=== PATIENT | female | born 1995 | race Caucasian/White ===

== ENCOUNTER 2018-05-01 18:06 | Inpatient (IN) | payer MEDICAID ==
[2018-05-01 19:22] LABS: ADD MAN DIFF? NO
[2018-05-01 19:26] LABS: WHITE BLOOD COUNT 17.9 10^3/ul (4.8-10.8)
[2018-05-01 19:26] LABS: BASOPHIL # 0.1 10^3/ul (0.0-0.1); BASOPHILS % 0.3 % (0.0-2.0); EOSINOPHILS % 0.1 % (0.0-7.0); HEMATOCRIT 32.4 % (37.0-47.0); HEMOGLOBIN 11.3 g/dl (12.0-16.0); LYMPHOCYTES # 1.1 10^3/ul (0.8-2.9); LYMPHOCYTES % 5.9 % (15.0-51.0); MEAN CORPUSCULAR HGB CONC 34.9 g/dl (32.0-37.0); MEAN CORPUSCULAR VOLUME 91.8 fl (82.0-101.0); MEAN PLATELET VOLUME 9.8 fl (7.4-10.4); MONOCYTE # 0.9 10^3/ul (0.3-0.9); MONOCYTES % 5.1 % (0.0-11.0); NEUTROPHIL # 15.6 10^3/ul (1.6-7.5); NEUTROPHILS % 87.3 % (39.0-77.0); PLATELET COUNT 237 10^3/UL (140-415); RED BLOOD COUNT 3.53 10^6/ul (4.20-5.40); RED CELL DISTRIBUTION WIDTH 12.1 % (11.5-14.5)
[2018-05-01 19:31] LABS: ADD UMIC NO; UR ASCORBIC ACID NEGATIVE (NEGATIVE); UR BILIRUBIN (Dip) NEGATIVE (NEGATIVE); UR BLOOD (Dip) NEGATIVE (NEGATIVE); UR CLARITY CLEAR (CLEAR); UR COLOR YELLOW (YELLOW); UR GLUCOSE (Dip) NEGATIVE (NEGATIVE); UR KETONES (Dip) NEGATIVE (NEGATIVE); UR LEUKOCYTE ESTERASE (Dip) NEGATIVE Leu/ul (NEGATIVE); UR NITRITE (Dip) NEGATIVE (NEGATIVE); UR SPECIFIC GRAVITY (Dip) 1.015 (1.003-1.030); UR TOTAL PROTEIN (Dip) NEGATIVE (NEGATIVE); UR UROBILINOGEN (Dip) NEGATIVE (NEGATIVE)
[2018-05-01] MEDS: ACETAMINOPHEN 325 MG TAB PO (19:33)
[2018-05-01] MEDS: SOD CHLORIDE 0.9% 1,000 ML IV ×2 (19:33→20:30)
[2018-05-01] MEDS: ONDANSETRON 4 MG INJ IV (19:34)
[2018-05-01 19:42] LABS: ALANINE AMINOTRANSFERASE 88 IU/L (13-69); ALBUMIN 3.5 g/dl (3.3-4.9); ALBUMIN/GLOBULIN RATIO 1.12; ALKALINE PHOSPHATASE 75 IU/L (42-121); ANION GAP 11 (5-13); ASPARTATE AMINO TRANSFERASE 60 IU/L (15-46); BILIRUBIN,INDIRECT 0.2 mg/dl (0-1.1); BILIRUBIN,TOTAL 0.2 mg/dl (0.2-1.3); BLOOD UREA NITROGEN 6 mg/dl (7-20); CALCIUM 9.2 mg/dl (8.4-10.2); CARBON DIOXIDE 17 mmol/L (21-31); CHLORIDE 109 mmol/L (97-110); CREATININE 0.53 mg/dl (0.44-1.00); Estimated GFR > 60 mL/min (>60); GLUCOSE 98 mg/dl (70-220); LIPASE 37 U/L (23-300); POTASSIUM 3.4 mmol/L (3.5-5.1); SODIUM 137 mmol/L (135-144); TOTAL PROTEIN 6.6 g/dl (6.1-8.1)
[2018-05-01] MEDS: NITROFURANTOIN (SR) 100 MG CAP PO (20:30)
[2018-05-01 21:38] LABS: AADO2 Arterial 6.4 mmHg (7.0-24.0); Allen Test ACCEPTAB; Arterial Base Excess -4.1 mmol/L (-3.0-3); Arterial Blood Gas Oxygen Sat 98.3 mmHG (95.0-98.0); Arterial COHb 0.3 % (0.0-3.0); Arterial Fraction of Oxyhgb 97.6 % (93.0-99.0); Arterial HCO3 16.3 mmol/L (22.0-26.0); Arterial MetHb 0.4 % (0.0-1.5); Arterial pCO2 19.8 mmhg (35-45); MODE ROOM AIR; Site Right Radial
[2018-05-01] MEDS: PIPER-TAZO 3.375 GM IV (PMX) 100 ML IVPB (22:16)
[2018-05-01 23:11] LABS: LACTIC ACID 1.1 mmol/L (0.5-2.0)
[2018-05-02] MEDS ORDERED: BISACODYL (EC) 5 MG TAB PO
[2018-05-02] MEDS: NACL 0.9% 3 ML SYG IV (00:45)
[2018-05-02] MEDS: POTASSIUM CHLORIDE (SR) 20 MEQ TAB PO (00:47)
[2018-05-02] MEDS: DOCUSATE SODIUM 100 MG CAP PO ×2 (00:47→20:40)
[2018-05-02] MEDS: PRENATAL VITAMIN PO ×2 (02:00→08:14)
[2018-05-02] MEDS: ACETAMINOPHEN 325 MG TAB PO ×2 (04:43→20:44)
[2018-05-02 05:38] LABS: ADD MAN DIFF? NO
[2018-05-02 05:51] LABS: BASOPHIL # 0.1 10^3/ul (0.0-0.1); BASOPHILS % 0.3 % (0.0-2.0); EOSINOPHILS # 0.1 10^3/ul (0.0-0.5); EOSINOPHILS % 0.4 % (0.0-7.0); HEMATOCRIT 32.3 % (37.0-47.0); LYMPHOCYTES # 1.2 10^3/ul (0.8-2.9); LYMPHOCYTES % 7.6 % (15.0-51.0); MEAN CORPUSCULAR HGB CONC 34.1 g/dl (32.0-37.0); MEAN CORPUSCULAR VOLUME 93.9 fl (82.0-101.0); MEAN PLATELET VOLUME 9.9 fl (7.4-10.4); MONOCYTES % 6.3 % (0.0-11.0); NEUTROPHIL # 13.3 10^3/ul (1.6-7.5); NEUTROPHILS % 83.8 % (39.0-77.0); PLATELET COUNT 224 10^3/UL (140-415); RED BLOOD COUNT 3.44 10^6/ul (4.20-5.40); RED CELL DISTRIBUTION WIDTH 12.1 % (11.5-14.5)
[2018-05-02 05:51] LABS: WHITE BLOOD COUNT 15.8 10^3/ul (4.8-10.8)
[2018-05-02 06:04] LABS: HEMOGLOBIN A1C 4.6 % (0-5.9)
[2018-05-02 06:27] LABS: ALANINE AMINOTRANSFERASE 85 IU/L (13-69); ALBUMIN/GLOBULIN RATIO 0.93; ALKALINE PHOSPHATASE 72 IU/L (42-121); ANION GAP 9 (5-13); ASPARTATE AMINO TRANSFERASE 48 IU/L (15-46); BILIRUBIN,INDIRECT 0.1 mg/dl (0-1.1); BILIRUBIN,TOTAL 0.1 mg/dl (0.2-1.3); BLOOD UREA NITROGEN 3 mg/dl (7-20); CALCIUM 8.5 mg/dl (8.4-10.2); CARBON DIOXIDE 19 mmol/L (21-31); CHLORIDE 111 mmol/L (97-110); CHOL/HDL RATIO 2.6 RATIO; CHOLESTEROL 160 mg/dl (100-200); CREATININE 0.46 mg/dl (0.44-1.00); Estimated GFR > 60 mL/min (>60); GLUCOSE 90 mg/dl (70-220); HDL CHOLESTEROL 61 mg/dl (33-83); LDL CHOLESTEROL,CALCULATED 84 mg/dl; MAGNESIUM 1.8 mg/dl (1.7-2.5); POTASSIUM 3.8 mmol/L (3.5-5.1); SODIUM 139 mmol/L (135-144); TOTAL PROTEIN 6.2 g/dl (6.1-8.1); TRIGLYCERIDES 76 mg/dl (0-149)
[2018-05-02 06:41] LABS: THYROID STIMULATING HORMONE 0.677 MIU/L (0.465-4.680)
[2018-05-02] MEDS: CEFTRIAXONE 1 GM INJ IVPB (16:00)
[2018-05-02] MEDS: DEXTROSE 5%-0.45% NACL 1,000 ML IV (16:10)
[2018-05-02] MEDS: PIPER-TAZO 3.375 GM IV (PMX) 100 ML IVPB ×2 (16:45→23:03)
[2018-05-03] MEDS: DEXTROSE 5%-0.45% NACL 1,000 ML IV ×2 (04:50→06:07)
[2018-05-03] MEDS: PIPER-TAZO 3.375 GM IV (PMX) 100 ML IVPB ×2 (06:04→13:04)
[2018-05-03 06:06] LABS: ADD MAN DIFF? NO
[2018-05-03 06:08] LABS: WHITE BLOOD COUNT 9.5 10^3/ul (4.8-10.8)
[2018-05-03 06:08] LABS: BASOPHIL # 0.1 10^3/ul (0.0-0.1); BASOPHILS % 0.6 % (0.0-2.0); EOSINOPHILS # 0.2 10^3/ul (0.0-0.5); EOSINOPHILS % 2.2 % (0.0-7.0); HEMATOCRIT 31.3 % (37.0-47.0); HEMOGLOBIN 10.5 g/dl (12.0-16.0); LYMPHOCYTES # 1.9 10^3/ul (0.8-2.9); LYMPHOCYTES % 19.5 % (15.0-51.0); MEAN CORPUSCULAR HEMOGLOBIN 31.9 pg (29.0-33.0); MEAN CORPUSCULAR HGB CONC 33.5 g/dl (32.0-37.0); MEAN CORPUSCULAR VOLUME 95.1 fl (82.0-101.0); MEAN PLATELET VOLUME 9.9 fl (7.4-10.4); MONOCYTE # 0.7 10^3/ul (0.3-0.9); MONOCYTES % 7.4 % (0.0-11.0); NEUTROPHIL # 6.4 10^3/ul (1.6-7.5); NEUTROPHILS % 66.8 % (39.0-77.0); PLATELET COUNT 232 10^3/UL (140-415); RED BLOOD COUNT 3.29 10^6/ul (4.20-5.40); RED CELL DISTRIBUTION WIDTH 12.3 % (11.5-14.5)
[2018-05-03 06:27] LABS: ANION GAP 5 (5-13); BLOOD UREA NITROGEN 5 mg/dl (7-20); CALCIUM 8.5 mg/dl (8.4-10.2); CARBON DIOXIDE 23 mmol/L (21-31); CHLORIDE 111 mmol/L (97-110); Estimated GFR > 60 mL/min (>60); GLUCOSE 86 mg/dl (70-220); POTASSIUM 3.6 mmol/L (3.5-5.1); SODIUM 139 mmol/L (135-144)
[2018-05-03] MEDS: PRENATAL VITAMIN PO (08:08)
[2018-05-03] MEDS: ONDANSETRON 4 MG TAB PO (09:55)
== END 2018-05-03 15:20 | disposition home or self-care (01) | DRG 831 ==
LOC: 2NE 23:17 → E/R 18:06
PROVIDERS: Family Medicine
DX: O98.812 Other maternal infectious and parasitic diseases complicating pregnancy, second trimester (principal); A41.9 Sepsis, unspecified organism; R65.20 Severe sepsis without septic shock; E87.2 Acidosis; B96.89 Other specified bacterial agents as the cause of diseases classified elsewhere; Z3A.17 17 weeks gestation of pregnancy; R74.0 Nonspecific elevation of levels of transaminase and lactic acid dehydrogenase [LDH]; J06.9 Acute upper respiratory infection, unspecified; K82.4 Cholesterolosis of gallbladder; O99.612 Diseases of the digestive system complicating pregnancy, second trimester
CPT/HCPCS: 36415; 36600; 71045; 76705; 76805; 80048; 80053; 80061; 81003; 82803; 83036; 83605; 83690; 83735; 84443; 84702; 85025; 87040; 87086; 87400; 87880; 96361; 96374; 99291-25

== ENCOUNTER 2018-06-21 08:43 | Outpatient (CLI) | payer BC ==
[2018-06-21 09:33] LABS: ADD MAN DIFF? NO
[2018-06-21 09:43] LABS: BASOPHILS % 0.3 % (0.0-2.0); EOSINOPHILS # 0.1 10^3/ul (0.0-0.5); HEMATOCRIT 31.5 % (37.0-47.0); HEMOGLOBIN 10.6 g/dl (12.0-16.0); LYMPHOCYTES # 1.8 10^3/ul (0.8-2.9); LYMPHOCYTES % 16.8 % (15.0-51.0); MEAN CORPUSCULAR HEMOGLOBIN 32.1 pg (29.0-33.0); MEAN CORPUSCULAR HGB CONC 33.7 g/dl (32.0-37.0); MEAN CORPUSCULAR VOLUME 95.5 fl (82.0-101.0); MEAN PLATELET VOLUME 9.4 fl (7.4-10.4); MONOCYTE # 0.5 10^3/ul (0.3-0.9); MONOCYTES % 5.1 % (0.0-11.0); NEUTROPHIL # 7.6 10^3/ul (1.6-7.5); NEUTROPHILS % 72.9 % (39.0-77.0); PLATELET COUNT 263 10^3/UL (140-415); RED CELL DISTRIBUTION WIDTH 12.5 % (11.5-14.5)
[2018-06-21 09:43] LABS: WHITE BLOOD COUNT 10.4 10^3/ul (4.8-10.8)
[2018-06-21 09:54] LABS: ADD UMIC YES; UR ASCORBIC ACID 40 mg/dL (NEGATIVE); UR BACTERIA FEW /HPF (NONE SEEN); UR BILIRUBIN (Dip) NEGATIVE (NEGATIVE); UR BLOOD (Dip) NEGATIVE (NEGATIVE); UR CLARITY SLIGHTLY CLOUDY (CLEAR); UR COLOR YELLOW (YELLOW); UR GLUCOSE (Dip) NEGATIVE (NEGATIVE); UR KETONES (Dip) NEGATIVE (NEGATIVE); UR LEUKOCYTE ESTERASE (Dip) TRACE Leu/ul (NEGATIVE); UR MUCUS FEW /HPF (NONE SEEN); UR NITRITE (Dip) NEGATIVE (NEGATIVE); UR RBC 1 /HPF (0-5); UR SQUAMOUS EPITHELIAL CELL FEW /HPF (FEW); UR TOTAL PROTEIN (Dip) NEGATIVE (NEGATIVE); UR UROBILINOGEN (Dip) 1+ mg/dL (NEGATIVE); UR WBC 1 /HPF (0-5)
== END 2018-06-21 10:35 | disposition home or self-care (01) ==
LOC: OBT 08:43 → L-D 08:43 → OBT 10:35
DX: O46.92 Antepartum hemorrhage, unspecified, second trimester (principal); Z3A.24 24 weeks gestation of pregnancy
CPT/HCPCS: 76815; 76817; 81001; 85025; 86850; 86900; 86901; 87086

== ENCOUNTER 2018-08-06 19:10 | Outpatient (CLI) | payer BC, MEDICAID ==
[2018-08-06 20:57] LABS: ALANINE AMINOTRANSFERASE 23 IU/L (13-69); ALBUMIN 3.1 g/dl (3.3-4.9); ALBUMIN/GLOBULIN RATIO 1.03; ALKALINE PHOSPHATASE 127 IU/L (42-121); ANION GAP 5 (5-13); ASPARTATE AMINO TRANSFERASE 23 IU/L (15-46); BILIRUBIN,INDIRECT 0.4 mg/dl (0-1.1); BILIRUBIN,TOTAL 0.4 mg/dl (0.2-1.3); BLOOD UREA NITROGEN 7 mg/dl (7-20); CALCIUM 8.6 mg/dl (8.4-10.2); CARBON DIOXIDE 25 mmol/L (21-31); CHLORIDE 105 mmol/L (97-110); CREATININE 0.48 mg/dl (0.44-1.00); Estimated GFR > 60 mL/min (>60); GLUCOSE 91 mg/dl (70-220); POTASSIUM 3.7 mmol/L (3.5-5.1); SODIUM 135 mmol/L (135-144); TOTAL PROTEIN 6.1 g/dl (6.1-8.1)
[2018-08-11 14:57] LABS: CHENODEOXYCHOLIC ACID 2.5 umol/L (< OR = 3.1); CHOLIC ACID 3.6 umol/L (< OR = 1.8); DEOXYCHOLIC ACID 2.7 umol/L (< OR = 2.4); TOTAL BILE ACIDS 8.7 umol/L (< OR = 6.8)
== END 2018-08-06 22:09 | disposition home or self-care (01) ==
LOC: OBT 19:10 → L-D 19:10 → OBT 22:09
DX: O36.8130 Decreased fetal movements, third trimester, not applicable or unspecified (principal); Z3A.30 30 weeks gestation of pregnancy
CPT/HCPCS: 76818; 80053; 83789

== ENCOUNTER 2018-08-08 19:43 | Outpatient (CLI) | payer BC, MEDICAID ==
[2018-08-08] MEDS: LACTATED RINGER'S 1,000 ML IV (21:20)
[2018-08-08] MEDS: NIFEdipine 10 MG CAP PO (23:06)
[2018-08-08] MEDS: TERBUTALINE 1 MG/ML INJ SC (23:13)
[2018-08-09] MEDS ORDERED: ONDANSETRON 4 MG INJ IV (01:00)
[2018-08-09 01:41] LABS: ADD MAN DIFF? NO
[2018-08-09 01:45] LABS: BASOPHIL # 0.1 10^3/ul (0.0-0.1); BASOPHILS % 0.6 % (0.0-2.0); EOSINOPHILS % 0.3 % (0.0-7.0); HEMATOCRIT 34.8 % (37.0-47.0); HEMOGLOBIN 11.8 g/dl (12.0-16.0); LYMPHOCYTES # 1.1 10^3/ul (0.8-2.9); LYMPHOCYTES % 7.9 % (15.0-51.0); MEAN CORPUSCULAR HEMOGLOBIN 31.9 pg (29.0-33.0); MEAN CORPUSCULAR HGB CONC 33.9 g/dl (32.0-37.0); MEAN CORPUSCULAR VOLUME 94.1 fl (82.0-101.0); MEAN PLATELET VOLUME 9.8 fl (7.4-10.4); MONOCYTE # 0.4 10^3/ul (0.3-0.9); MONOCYTES % 3.2 % (0.0-11.0); NEUTROPHIL # 11.2 10^3/ul (1.6-7.5); NEUTROPHILS % 83.8 % (39.0-77.0); PLATELET COUNT 260 10^3/UL (140-415); RED CELL DISTRIBUTION WIDTH 12.1 % (11.5-14.5)
[2018-08-09 01:45] LABS: WHITE BLOOD COUNT 13.3 10^3/ul (4.8-10.8)
[2018-08-09 01:47] LABS: ADD UMIC NO; UR ASCORBIC ACID NEGATIVE (NEGATIVE); UR BACTERIA FEW /HPF (NONE SEEN); UR BILIRUBIN (Dip) NEGATIVE (NEGATIVE); UR BLOOD (Dip) NEGATIVE (NEGATIVE); UR CLARITY SLIGHTLY CLOUDY (CLEAR); UR COLOR YELLOW (YELLOW); UR GLUCOSE (Dip) NEGATIVE (NEGATIVE); UR KETONES (Dip) 2+ mg/dL (NEGATIVE); UR LEUKOCYTE ESTERASE (Dip) NEGATIVE Leu/ul (NEGATIVE); UR NITRITE (Dip) NEGATIVE (NEGATIVE); UR RBC 0 /HPF (0-5); UR SPECIFIC GRAVITY (Dip) 1.017 (1.003-1.030); UR SQUAMOUS EPITHELIAL CELL FEW /HPF (FEW); UR TOTAL PROTEIN (Dip) NEGATIVE (NEGATIVE); UR UROBILINOGEN (Dip) NEGATIVE (NEGATIVE); UR WBC 1 /HPF (0-5)
== END 2018-08-09 02:15 | disposition home or self-care (01) ==
LOC: OBT 19:43 → L-D 19:43
DX: O99.613 Diseases of the digestive system complicating pregnancy, third trimester (principal); K52.9 Noninfective gastroenteritis and colitis, unspecified; O47.03 False labor before 37 completed weeks of gestation, third trimester; Z3A.31 31 weeks gestation of pregnancy
CPT/HCPCS: 36415; 76815; 76817; 76818; 81001; 81003; 85025; 87086; 96360; 96361

== ENCOUNTER 2018-08-09 13:57 | Outpatient (CLI) | payer BC, MEDICAID ==
[2018-08-09 15:44] LABS: ADD UMIC YES; UR ASCORBIC ACID NEGATIVE (NEGATIVE); UR BACTERIA FEW /HPF (NONE SEEN); UR BILIRUBIN (Dip) NEGATIVE (NEGATIVE); UR BLOOD (Dip) NEGATIVE (NEGATIVE); UR CLARITY CLEAR (CLEAR); UR COLOR STRAW (YELLOW); UR GLUCOSE (Dip) NEGATIVE (NEGATIVE); UR KETONES (Dip) NEGATIVE (NEGATIVE); UR LEUKOCYTE ESTERASE (Dip) TRACE Leu/ul (NEGATIVE); UR NITRITE (Dip) NEGATIVE (NEGATIVE); UR RBC 0 /HPF (0-5); UR SPECIFIC GRAVITY (Dip) 1.003 (1.003-1.030); UR SQUAMOUS EPITHELIAL CELL FEW /HPF (FEW); UR TOTAL PROTEIN (Dip) NEGATIVE (NEGATIVE); UR UROBILINOGEN (Dip) 1+ mg/dL (NEGATIVE); UR WBC 3 /HPF (0-5)
[2018-08-09 16:50] LABS: TROPONIN-I < 0.012 ng/ml (0.000-0.120)
== END 2018-08-09 16:45 | disposition home or self-care (01) ==
LOC: OBT 13:57 → L-D 13:57 → OBT 16:45
DX: O60.03 Preterm labor without delivery, third trimester (principal); Z3A.30 30 weeks gestation of pregnancy
CPT/HCPCS: 76817; 76818; 81001; 84484; 87086; 93005

== ENCOUNTER 2018-08-09 16:57 | Emergency (ER) | payer BC, MEDICAID | END 2018-08-09 19:15 | disposition home or self-care (01) | LOC: FTE 16:57 | DX: O26.893 Other specified pregnancy related conditions, third trimester (principal); R07.9 Chest pain, unspecified; Z3A.31 31 weeks gestation of pregnancy | CPT/HCPCS: 99282 ==

== ENCOUNTER 2018-08-23 16:10 | Outpatient (CLI) | payer BC, MEDICAID | END 2018-08-23 17:57 | disposition home or self-care (01) | LOC: OBT 16:10 → L-D 16:12 → OBT 17:57 | DX: O40.3XX0 Polyhydramnios, third trimester, not applicable or unspecified (principal); Z3A.33 33 weeks gestation of pregnancy | CPT/HCPCS: 76818 ==

== ENCOUNTER 2018-08-25 11:46 | Outpatient (CLI) | payer BC, MEDICAID ==
[2018-08-25 13:30] LABS: ADD UMIC NO; UR ASCORBIC ACID NEGATIVE (NEGATIVE); UR BILIRUBIN (Dip) NEGATIVE (NEGATIVE); UR BLOOD (Dip) NEGATIVE (NEGATIVE); UR CLARITY CLEAR (CLEAR); UR COLOR YELLOW (YELLOW); UR GLUCOSE (Dip) NEGATIVE (NEGATIVE); UR KETONES (Dip) NEGATIVE (NEGATIVE); UR LEUKOCYTE ESTERASE (Dip) NEGATIVE Leu/ul (NEGATIVE); UR NITRITE (Dip) NEGATIVE (NEGATIVE); UR SPECIFIC GRAVITY (Dip) 1.013 (1.003-1.030); UR TOTAL PROTEIN (Dip) NEGATIVE (NEGATIVE); UR UROBILINOGEN (Dip) NEGATIVE (NEGATIVE)
== END 2018-08-25 13:45 | disposition home or self-care (01) ==
LOC: OBT 11:46 → L-D 11:47 → OBT 13:45
DX: O47.03 False labor before 37 completed weeks of gestation, third trimester (principal); Z3A.33 33 weeks gestation of pregnancy
CPT/HCPCS: 81003

== ENCOUNTER 2018-09-05 19:58 | Emergency (ER) | payer BC, MEDICAID ==
[2018-09-05] MEDS: DIPHENHYDRAMINE 25 MG CAP PO (22:08)
== END 2018-09-05 22:24 | disposition home or self-care (01) ==
LOC: FTE 19:58
DX: O9A.213 Injury, poisoning and certain other consequences of external causes complicating pregnancy, third trimester (principal); S80.862A Insect bite (nonvenomous), left lower leg, initial encounter; S80.861A Insect bite (nonvenomous), right lower leg, initial encounter; W57.XXXA Bitten or stung by nonvenomous insect and other nonvenomous arthropods, initial encounter; Y92.9 Unspecified place or not applicable; Z3A.35 35 weeks gestation of pregnancy
CPT/HCPCS: 99282

== ENCOUNTER 2018-09-06 09:27 | Inpatient (IN) | payer BC, MEDICAID ==
[2018-09-06 11:14] LABS: RUPTURE FETAL MEMBRANES NEGATIVE (NEGATIVE)
[2018-09-06] MEDS ORDERED: ACETAMINOPHEN 500 MG TAB PO (15:00)
[2018-09-06 15:27] LABS: ADD MAN DIFF? NO
[2018-09-06 15:31] LABS: BASOPHIL # 0.1 10^3/ul (0.0-0.1); BASOPHILS % 0.6 % (0.0-2.0); EOSINOPHILS # 0.3 10^3/ul (0.0-0.5); EOSINOPHILS % 2.8 % (0.0-7.0); HEMATOCRIT 34.6 % (37.0-47.0); HEMOGLOBIN 11.7 g/dl (12.0-16.0); LYMPHOCYTES % 19.5 % (15.0-51.0); MEAN CORPUSCULAR HEMOGLOBIN 31.5 pg (29.0-33.0); MEAN CORPUSCULAR HGB CONC 33.8 g/dl (32.0-37.0); MEAN PLATELET VOLUME 10.3 fl (7.4-10.4); MONOCYTE # 0.5 10^3/ul (0.3-0.9); MONOCYTES % 5.4 % (0.0-11.0); NEUTROPHIL # 6.8 10^3/ul (1.6-7.5); NEUTROPHILS % 67.5 % (39.0-77.0); PLATELET COUNT 245 10^3/UL (140-415); RED BLOOD COUNT 3.72 10^6/ul (4.20-5.40); RED CELL DISTRIBUTION WIDTH 12.5 % (11.5-14.5)
[2018-09-06] MEDS: LACTATED RINGER'S 1,000 ML IV ×2 (15:37→22:21)
[2018-09-06] MEDS: GENTAMICIN 80 MG/NS (PMX) 50 ML IVPB ×2 (15:37→21:27)
[2018-09-06 15:50] LABS: INR 0.85; PROTIME 11.7 Sec (11.9-14.9); PT RATIO 0.9
[2018-09-06 15:51] LABS: PARTIAL THROMBOPLASTIN TIME 28.6 Sec (23.0-35.0)
[2018-09-06 15:53] LABS: ALANINE AMINOTRANSFERASE 20 IU/L (13-69); ALBUMIN 3.1 g/dl (3.3-4.9); ALBUMIN/GLOBULIN RATIO 0.93; ALKALINE PHOSPHATASE 201 IU/L (42-121); ANION GAP 8 (5-13); ASPARTATE AMINO TRANSFERASE 19 IU/L (15-46); BILIRUBIN,INDIRECT 0.3 mg/dl (0-1.1); BILIRUBIN,TOTAL 0.3 mg/dl (0.2-1.3); BLOOD UREA NITROGEN 6 mg/dl (7-20); CALCIUM 8.7 mg/dl (8.4-10.2); CARBON DIOXIDE 21 mmol/L (21-31); CHLORIDE 108 mmol/L (97-110); CREATININE 0.43 mg/dl (0.44-1.00); Estimated GFR > 60 mL/min (>60); GLUCOSE 81 mg/dl (70-220); POTASSIUM 3.5 mmol/L (3.5-5.1); SODIUM 137 mmol/L (135-144); TOTAL PROTEIN 6.4 g/dl (6.1-8.1)
[2018-09-06 16:04] LABS: ADD UMIC NO; UR ASCORBIC ACID NEGATIVE (NEGATIVE); UR BILIRUBIN (Dip) NEGATIVE (NEGATIVE); UR BLOOD (Dip) NEGATIVE (NEGATIVE); UR CLARITY CLEAR (CLEAR); UR COLOR STRAW (YELLOW); UR GLUCOSE (Dip) NEGATIVE (NEGATIVE); UR KETONES (Dip) NEGATIVE (NEGATIVE); UR LEUKOCYTE ESTERASE (Dip) NEGATIVE Leu/ul (NEGATIVE); UR NITRITE (Dip) NEGATIVE (NEGATIVE); UR SPECIFIC GRAVITY (Dip) 1.003 (1.003-1.030); UR TOTAL PROTEIN (Dip) NEGATIVE (NEGATIVE); UR UROBILINOGEN (Dip) NEGATIVE (NEGATIVE)
[2018-09-06 16:52] LABS: HEPATITIS B SURFACE ANTIGEN NEGATIVE (NEGATIVE)
[2018-09-06] MEDS: URSODIOL 300 MG CAP PO ×2 (17:00→22:07)
[2018-09-06] MEDS: BETAMET NA PHOS/AC(6 MG/ML) 2 ML INJ SYG IM (19:00)
[2018-09-06] MEDS ORDERED: ACETAMINOPHEN 325 MG TAB PO (21:30)
[2018-09-07] MEDS: GENTAMICIN 80 MG/NS (PMX) 50 ML IVPB ×3 (05:20→21:37)
[2018-09-07] MEDS: LACTATED RINGER'S 1,000 ML IV ×3 (06:43→22:41)
[2018-09-07] MEDS: FERROUS SULFATE (EC) 325 MG TAB PO (09:10)
[2018-09-07] MEDS: PRENATAL VITAMIN PO (09:10)
[2018-09-07] MEDS: URSODIOL 300 MG CAP PO ×3 (09:10→21:37)
[2018-09-07] MEDS: BETAMET NA PHOS/AC(6 MG/ML) 2 ML INJ SYG IM (19:04)
[2018-09-08] MEDS: LACTATED RINGER'S 1,000 ML IV ×4 (05:15→23:54)
[2018-09-08] MEDS: GENTAMICIN 80 MG/NS (PMX) 50 ML IVPB ×3 (05:43→21:13)
[2018-09-08] MEDS: PRENATAL VITAMIN PO (09:12)
[2018-09-08] MEDS: URSODIOL 300 MG CAP PO ×3 (09:12→21:13)
[2018-09-08] MEDS: FERROUS SULFATE (EC) 325 MG TAB PO (09:13)
[2018-09-08] MEDS: AMPICILLIN 2 GM/NS (PMX) 100 ML IVPB (09:57)
[2018-09-08] MEDS ORDERED: FENTAnyl 2MCG/ML-ROPIV 0.2% 100 ML (16:46)
[2018-09-08] MEDS ORDERED: FENTAnyl 2MCG/ML-ROPIV 0.2% 100 ML BAG EPI (17:00)
[2018-09-08] MEDS ORDERED: NALOXONE (0.4 MG/ML) INJ IV (17:00)
[2018-09-08] MEDS ORDERED: ONDANSETRON 4 MG INJ IV (17:00)
[2018-09-08] MEDS ORDERED: DIPHENHYDRAMINE 50 MG INJ IV (17:00)
[2018-09-08] MEDS: AL HYDROX/MG HYDROX/SIMETH 30 ML CUP PO (20:29)
[2018-09-08] MEDS ORDERED: FAMOTIDINE 20 MG INJ IV (21:30)
[2018-09-09] MEDS: GENTAMICIN 80 MG/NS (PMX) 50 ML IVPB (05:31)
[2018-09-09] MEDS: URSODIOL 300 MG CAP PO (11:00)
== END 2018-09-09 13:52 | disposition home or self-care (01) | DRG 831 ==
LOC: OBT 09:27 → L-D 09:29 → OBT 13:00 → L-D 13:13
PROVIDERS: Obstetrics & Gynecology
DX: O23.03 Infections of kidney in pregnancy, third trimester (principal); O60.03 Preterm labor without delivery, third trimester; K83.1 Obstruction of bile duct; O26.613 Liver and biliary tract disorders in pregnancy, third trimester; Z3A.35 35 weeks gestation of pregnancy
CPT/HCPCS: 76815; 76818; 80053; 81003; 84112; 85025; 85610; 85730; 86850; 86900; 86901; 87086; 87340

== ENCOUNTER 2018-09-19 08:12 | Inpatient (IN) | payer BC, MEDICAID ==
[2018-09-19] MEDS ORDERED: METHYLERGONOVINE 0.2 MG INJ IM (10:00)
[2018-09-19] MEDS ORDERED: LIDOCAINE 1% (MPF) 30 ML INJ INJ (10:00)
[2018-09-19] MEDS ORDERED: OXYTOCIN 30 UNITS/LR 500 ML IV (10:00)
[2018-09-19] MEDS ORDERED: MISOPROSTOL 200 MCG TAB PR (10:00)
[2018-09-19] MEDS ORDERED: CARBOPROST 250 MCG INJ IM (10:00)
[2018-09-19] MEDS: LACTATED RINGER'S 1,000 ML IV ×2 (11:47→19:09)
[2018-09-19] MEDS: URSODIOL 300 MG CAP PO ×3 (11:48→21:01)
[2018-09-19] MEDS: MISOPROSTOL 50 MCG CAPSULE PO ×2 (11:59→16:12)
[2018-09-19 12:10] LABS: ADD MAN DIFF? NO
[2018-09-19 12:12] LABS: WHITE BLOOD COUNT 11.1 10^3/ul (4.8-10.8)
[2018-09-19 12:12] LABS: BASOPHIL # 0.1 10^3/ul (0.0-0.1); BASOPHILS % 0.7 % (0.0-2.0); EOSINOPHILS # 0.1 10^3/ul (0.0-0.5); EOSINOPHILS % 1.3 % (0.0-7.0); HEMATOCRIT 37.4 % (37.0-47.0); HEMOGLOBIN 12.4 g/dl (12.0-16.0); LYMPHOCYTES # 1.8 10^3/ul (0.8-2.9); LYMPHOCYTES % 16.4 % (15.0-51.0); MEAN CORPUSCULAR HEMOGLOBIN 31.8 pg (29.0-33.0); MEAN CORPUSCULAR HGB CONC 33.2 g/dl (32.0-37.0); MEAN CORPUSCULAR VOLUME 95.9 fl (82.0-101.0); MEAN PLATELET VOLUME 10.1 fl (7.4-10.4); MONOCYTE # 0.6 10^3/ul (0.3-0.9); MONOCYTES % 5.8 % (0.0-11.0); NEUTROPHIL # 7.9 10^3/ul (1.6-7.5); NEUTROPHILS % 71.2 % (39.0-77.0); PLATELET COUNT 231 10^3/UL (140-415)
[2018-09-19 12:34] LABS: INR 0.81; PROTIME 11.3 Sec (11.9-14.9); PT RATIO 0.9
[2018-09-19 12:35] LABS: PARTIAL THROMBOPLASTIN TIME 21.7 Sec (23.0-35.0)
[2018-09-19 12:37] LABS: ALANINE AMINOTRANSFERASE 23 IU/L (13-69); ALBUMIN 3.3 g/dl (3.3-4.9); ALBUMIN/GLOBULIN RATIO 0.97; ALKALINE PHOSPHATASE 220 IU/L (42-121); ANION GAP 7 (5-13); ASPARTATE AMINO TRANSFERASE 23 IU/L (15-46); BILIRUBIN,INDIRECT 0.5 mg/dl (0-1.1); BILIRUBIN,TOTAL 0.5 mg/dl (0.2-1.3); BLOOD UREA NITROGEN 6 mg/dl (7-20); CALCIUM 9.3 mg/dl (8.4-10.2); CARBON DIOXIDE 25 mmol/L (21-31); CHLORIDE 106 mmol/L (97-110); Estimated GFR > 60 mL/min (>60); GLUCOSE 103 mg/dl (70-220); POTASSIUM 3.8 mmol/L (3.5-5.1); SODIUM 138 mmol/L (135-144); TOTAL PROTEIN 6.7 g/dl (6.1-8.1)
[2018-09-19 20:02] LABS: RAPID PLASMA REAGIN NONREACTIVE (NR)
[2018-09-20] MEDS: LACTATED RINGER'S 1,000 ML IV ×3 (02:19→19:49)
[2018-09-20] MEDS: BUTORPHANOL 2 MG INJ IV (04:27)
[2018-09-20] MEDS: URSODIOL 300 MG CAP PO ×3 (09:32→21:15)
[2018-09-20] MEDS: PRENATAL VITAMIN PO (12:03)
[2018-09-20] MEDS: MISOPROSTOL 50 MCG CAPSULE PO ×5 (13:04→19:00)
[2018-09-20] MEDS: OXYTOCIN 30 UNITS/LR 500 ML IV (21:18)
[2018-09-21] MEDS: BUTORPHANOL 2 MG INJ IV (00:50)
[2018-09-21] MEDS: LACTATED RINGER'S 1,000 ML IV ×4 (01:25→14:03)
[2018-09-21] MEDS ORDERED: LACTATED RINGER'S 1,000 ML IV (02:35)
[2018-09-21] MEDS ORDERED: FENTAnyl 2MCG/ML-ROPIV 0.2% 100 ML (03:24)
[2018-09-21] MEDS ORDERED: ONDANSETRON 4 MG INJ IV ×2 (03:30→18:30)
[2018-09-21] MEDS ORDERED: NALOXONE (0.4 MG/ML) INJ IV (03:30)
[2018-09-21] MEDS ORDERED: DIPHENHYDRAMINE 50 MG INJ IV (03:30)
[2018-09-21] MEDS: PRENATAL VITAMIN PO (09:00)
[2018-09-21] MEDS: URSODIOL 300 MG CAP PO ×2 (09:22→13:14)
[2018-09-21] MEDS: FENTAnyl 2MCG/ML-ROPIV 0.2% 100 ML BAG EPI ×2 (11:24→16:41)
[2018-09-21] MEDS: CLINDAMYCIN 900 MG/D5W (PMX) 50 ML IVPB (17:30)
[2018-09-21] MEDS ORDERED: ACETAMINOPHEN 325 MG TAB PO ×2 (17:30→18:30)
[2018-09-21] MEDS ORDERED: GENTAMICIN 80 MG/NS (PMX) 50 ML IVPB (17:30)
[2018-09-21] MEDS: IBUPROFEN 600 MG TAB PO ×2 (18:13→23:33)
[2018-09-21] MEDS: OXYTOCIN 30 UNITS/LR 500 ML IV ×3 (18:13→18:17)
[2018-09-21] MEDS ORDERED: OXYTOCIN 30 UNITS/LR 500 ML IV (18:30)
[2018-09-21] MEDS ORDERED: SENNA/DOCUSATE NA (8.6MG/50MG) TAB PO (18:30)
[2018-09-21] MEDS ORDERED: CARBOPROST 250 MCG INJ IM (18:30)
[2018-09-21] MEDS ORDERED: MISOPROSTOL 200 MCG TAB PR (18:30)
[2018-09-21] MEDS ORDERED: NACL 0.9% 3 ML SYG IV (18:30)
[2018-09-21] MEDS ORDERED: METHYLERGONOVINE 0.2 MG INJ IM (18:30)
[2018-09-21] MEDS: SENNA/DOCUSATE NA (8.6MG/50MG) TAB PO (21:58)
[2018-09-21] MEDS: BENZOCAINE 20% 56 ML SPRAY TOP (23:32)
[2018-09-21] MEDS: LANOLIN HPA 1 PKT TOP (23:32)
[2018-09-21] MEDS: WITCH HAZEL/GLYCERIN PAD PR (23:33)
[2018-09-22] MEDS: OXYCODONE/ASPIRIN (4.88/325) TAB PO (01:27)
[2018-09-22] MEDS: LACTATED RINGER'S 1,000 ML IV ×2 (02:03→11:23)
[2018-09-22] MEDS ORDERED: morphine 4 MG/ML VIAL IV (02:08)
[2018-09-22] MEDS ORDERED: HYDROmorphONE 1 MG/ML SYG IV (02:09)
[2018-09-22] MEDS ORDERED: KETOROLAC 30 MG INJ IV ×2 (02:09)
[2018-09-22] MEDS: MAGNESIUM SULFATE 4 GM/100 ML 100 ML IV (02:25)
[2018-09-22] MEDS: HYDROmorphONE 1 MG/ML SYG IV (02:26)
[2018-09-22] MEDS: morphine 4 MG/ML VIAL IV (02:33)
[2018-09-22] MEDS: HYDROCORTISONE 100 MG INJ IV (02:34)
[2018-09-22] MEDS: KETOROLAC 30 MG INJ IV ×2 (02:34→22:25)
[2018-09-22] MEDS: MAGNESIUM SULFATE 20 GM/500 ML 500 ML IV ×2 (03:10→13:59)
[2018-09-22] MEDS: GABAPENTIN 300 MG CAP PO (03:59)
[2018-09-22] MEDS: IBUPROFEN 600 MG TAB PO ×3 (06:22→17:20)
[2018-09-22 08:09] LABS: ADD MAN DIFF? NO
[2018-09-22 08:21] LABS: WHITE BLOOD COUNT 15.4 10^3/ul (4.8-10.8)
[2018-09-22 08:21] LABS: BASOPHIL # 0.1 10^3/ul (0.0-0.1); BASOPHILS % 0.3 % (0.0-2.0); EOSINOPHILS % 0.1 % (0.0-7.0); HEMATOCRIT 36.7 % (37.0-47.0); HEMOGLOBIN 12.5 g/dl (12.0-16.0); LYMPHOCYTES # 1.2 10^3/ul (0.8-2.9); MEAN CORPUSCULAR HEMOGLOBIN 31.4 pg (29.0-33.0); MEAN CORPUSCULAR HGB CONC 34.1 g/dl (32.0-37.0); MEAN CORPUSCULAR VOLUME 92.2 fl (82.0-101.0); MEAN PLATELET VOLUME 10.9 fl (7.4-10.4); MONOCYTE # 0.3 10^3/ul (0.3-0.9); NEUTROPHIL # 13.5 10^3/ul (1.6-7.5); NEUTROPHILS % 87.8 % (39.0-77.0); PLATELET COUNT 200 10^3/UL (140-415); RED BLOOD COUNT 3.98 10^6/ul (4.20-5.40); RED CELL DISTRIBUTION WIDTH 12.6 % (11.5-14.5)
[2018-09-22] MEDS: SENNA/DOCUSATE NA (8.6MG/50MG) TAB PO ×2 (09:55→21:42)
[2018-09-22 11:13] LABS: MAGNESIUM 4.8 mg/dl (1.7-2.5)
[2018-09-22 15:25] LABS: MAGNESIUM 4.9 mg/dl (1.7-2.5)
[2018-09-22 21:14] LABS: MAGNESIUM 4.1 mg/dl (1.7-2.5)
[2018-09-23 03:38] LABS: MAGNESIUM 4.7 mg/dl (1.7-2.5)
[2018-09-23] MEDS: KETOROLAC 30 MG INJ IV ×2 (04:19→10:18)
[2018-09-23] MEDS: SENNA/DOCUSATE NA (8.6MG/50MG) TAB PO (08:53)
[2018-09-26] MEDS ORDERED: IBUPROFEN 600 MG TAB PO
== END 2018-09-23 18:10 | disposition home or self-care (01) | DRG 805 ==
LOC: L-D 09-20 02:00 → PP1 09-21 20:47 → L-D 09:00
PROC: 10E0XZZ Delivery of Products of Conception, External Approach (ICD-10-PCS; principal; 2018-09-21)
PROC: 0HQ9XZZ Repair Perineum Skin, External Approach (ICD-10-PCS; 2018-09-21)
PROC: 3E033VJ Introduction of Other Hormone into Peripheral Vein, Percutaneous Approach (ICD-10-PCS; 2018-09-21)
DX: O26.62 Liver and biliary tract disorders in childbirth (principal); K83.1 Obstruction of bile duct; Z37.0 Single live birth; O71.4 Obstetric high vaginal laceration alone; Z3A.37 37 weeks gestation of pregnancy
CPT/HCPCS: 62322; 70450; 76815; 80053; 83735; 85025; 85610; 85730; 86592; 86850; 86900; 86901; 99464

== ENCOUNTER 2018-09-25 11:10 | Emergency (ER) | payer BC, MEDICAID ==
[2018-09-25] MEDS: SOD CHLORIDE 0.9% 1,000 ML IV (11:39)
[2018-09-25] MEDS: PROCHLORPERAZINE 10 MG INJ IV (11:41)
[2018-09-25] MEDS: KETOROLAC 30 MG INJ IV (11:41)
[2018-09-25] MEDS: DIPHENHYDRAMINE 50 MG INJ IV (11:42)
[2018-09-25 12:03] LABS: ADD MAN DIFF? NO
[2018-09-25 12:05] LABS: WHITE BLOOD COUNT 8.6 10^3/ul (4.8-10.8)
[2018-09-25 12:05] LABS: BASOPHILS % 0.5 % (0.0-2.0); EOSINOPHILS # 0.3 10^3/ul (0.0-0.5); EOSINOPHILS % 3.4 % (0.0-7.0); HEMATOCRIT 38.3 % (37.0-47.0); LYMPHOCYTES # 2.2 10^3/ul (0.8-2.9); LYMPHOCYTES % 25.3 % (15.0-51.0); MEAN CORPUSCULAR HEMOGLOBIN 31.9 pg (29.0-33.0); MEAN CORPUSCULAR HGB CONC 33.9 g/dl (32.0-37.0); MEAN CORPUSCULAR VOLUME 93.9 fl (82.0-101.0); MEAN PLATELET VOLUME 10.2 fl (7.4-10.4); MONOCYTE # 0.3 10^3/ul (0.3-0.9); MONOCYTES % 3.6 % (0.0-11.0); NEUTROPHIL # 5.4 10^3/ul (1.6-7.5); NEUTROPHILS % 63.4 % (39.0-77.0); PLATELET COUNT 257 10^3/UL (140-415); RED BLOOD COUNT 4.08 10^6/ul (4.20-5.40); RED CELL DISTRIBUTION WIDTH 12.6 % (11.5-14.5)
[2018-09-25 12:23] LABS: ALANINE AMINOTRANSFERASE 26 IU/L (13-69); ALBUMIN 3.5 g/dl (3.3-4.9); ALBUMIN/GLOBULIN RATIO 1.02; ALKALINE PHOSPHATASE 166 IU/L (42-121); ANION GAP 8 (5-13); ASPARTATE AMINO TRANSFERASE 28 IU/L (15-46); BILIRUBIN,INDIRECT 0.5 mg/dl (0-1.1); BILIRUBIN,TOTAL 0.5 mg/dl (0.2-1.3); BLOOD UREA NITROGEN 7 mg/dl (7-20); CALCIUM 9.2 mg/dl (8.4-10.2); CARBON DIOXIDE 24 mmol/L (21-31); CHLORIDE 107 mmol/L (97-110); CREATININE 0.58 mg/dl (0.44-1.00); Estimated GFR > 60 mL/min (>60); GLUCOSE 113 mg/dl (70-220); POTASSIUM 3.8 mmol/L (3.5-5.1); SODIUM 139 mmol/L (135-144); TOTAL PROTEIN 6.9 g/dl (6.1-8.1)
[2018-09-25 12:24] LABS: INR 0.81; PROTIME 11.3 Sec (11.9-14.9); PT RATIO 0.9
== END 2018-09-25 13:18 | disposition home or self-care (01) ==
LOC: E/R 11:10
DX: O90.89 Other complications of the puerperium, not elsewhere classified (principal); R51 Headache
CPT/HCPCS: 80053; 85025; 85610; 96361; 96374; 96375; 99284-25

== ENCOUNTER 2018-09-25 21:05 | Emergency (ER) | payer BC, MEDICAID ==
[2018-09-25] MEDS: ONDANSETRON 4 MG INJ IV (21:41)
[2018-09-25] MEDS: SOD CHLORIDE 0.9% 1,000 ML IV (21:41)
[2018-09-25] MEDS: KETOROLAC 15 MG INJ IV (21:41)
[2018-09-25 21:48] LABS: ADD MAN DIFF? NO
[2018-09-25 21:50] LABS: WHITE BLOOD COUNT 9.8 10^3/ul (4.8-10.8)
[2018-09-25 21:50] LABS: BASOPHIL # 0.1 10^3/ul (0.0-0.1); BASOPHILS % 0.5 % (0.0-2.0); EOSINOPHILS # 0.2 10^3/ul (0.0-0.5); EOSINOPHILS % 1.9 % (0.0-7.0); HEMATOCRIT 35.3 % (37.0-47.0); HEMOGLOBIN 11.7 g/dl (12.0-16.0); LYMPHOCYTES # 2.2 10^3/ul (0.8-2.9); LYMPHOCYTES % 22.6 % (15.0-51.0); MEAN CORPUSCULAR HEMOGLOBIN 31.3 pg (29.0-33.0); MEAN CORPUSCULAR HGB CONC 33.1 g/dl (32.0-37.0); MEAN CORPUSCULAR VOLUME 94.4 fl (82.0-101.0); MEAN PLATELET VOLUME 9.9 fl (7.4-10.4); MONOCYTE # 0.6 10^3/ul (0.3-0.9); MONOCYTES % 5.7 % (0.0-11.0); NEUTROPHIL # 6.5 10^3/ul (1.6-7.5); NEUTROPHILS % 66.4 % (39.0-77.0); PLATELET COUNT 265 10^3/UL (140-415); RED BLOOD COUNT 3.74 10^6/ul (4.20-5.40); RED CELL DISTRIBUTION WIDTH 12.4 % (11.5-14.5)
[2018-09-25 22:00] LABS: ADD UMIC YES; UR ASCORBIC ACID NEGATIVE (NEGATIVE); UR BACTERIA MODERATE /HPF (NONE SEEN); UR BILIRUBIN (Dip) NEGATIVE (NEGATIVE); UR BLOOD (Dip) 3+ mg/dL (NEGATIVE); UR CLARITY SLIGHTLY CLOUDY (CLEAR); UR COLOR YELLOW (YELLOW); UR GLUCOSE (Dip) NEGATIVE (NEGATIVE); UR KETONES (Dip) TRACE mg/dL (NEGATIVE); UR LEUKOCYTE ESTERASE (Dip) 2+ Leu/ul (NEGATIVE); UR MUCUS FEW /HPF (NONE SEEN); UR NITRITE (Dip) NEGATIVE (NEGATIVE); UR RBC 34 /HPF (0-5); UR SPECIFIC GRAVITY (Dip) 1.025 (1.003-1.030); UR SQUAMOUS EPITHELIAL CELL FEW /HPF (FEW); UR TOTAL PROTEIN (Dip) 1+ mg/dl (NEGATIVE); UR UROBILINOGEN (Dip) NEGATIVE (NEGATIVE); UR WBC 13 /HPF (0-5)
[2018-09-25 22:07] LABS: ANION GAP 9 (5-13); BLOOD UREA NITROGEN 8 mg/dl (7-20); CALCIUM 8.6 mg/dl (8.4-10.2); CARBON DIOXIDE 22 mmol/L (21-31); CHLORIDE 109 mmol/L (97-110); CREATININE 0.61 mg/dl (0.44-1.00); Estimated GFR > 60 mL/min (>60); GLUCOSE 124 mg/dl (70-220); POTASSIUM 3.7 mmol/L (3.5-5.1); SODIUM 140 mmol/L (135-144)
[2018-09-25] MEDS: OXYCODONE/ACETAMINOPHEN (5/325) TAB PO (22:10)
[2018-09-25] MEDS: CEFTRIAXONE 1 GM/50 ML (PMX) 50 ML IVPB (22:35)
== END 2018-09-25 22:48 | disposition home or self-care (01) ==
LOC: E/R 21:05
DX: G44.209 Tension-type headache, unspecified, not intractable (principal); N39.0 Urinary tract infection, site not specified
CPT/HCPCS: 36415; 80048; 81001; 85025; 96361; 96374; 96375; 99284-25

== ENCOUNTER 2018-09-29 15:31 | Emergency (ER) | payer BC, MEDICAID ==
[2018-09-29] MEDS: SOD CHLORIDE 0.9% 1,000 ML IV (17:49)
[2018-09-29 17:55] LABS: ADD MAN DIFF? NO
[2018-09-29 17:57] LABS: BASOPHIL # 0.1 10^3/ul (0.0-0.1); BASOPHILS % 0.7 % (0.0-2.0); EOSINOPHILS # 0.3 10^3/ul (0.0-0.5); EOSINOPHILS % 2.6 % (0.0-7.0); HEMATOCRIT 44.1 % (37.0-47.0); HEMOGLOBIN 14.5 g/dl (12.0-16.0); LYMPHOCYTES # 3.1 10^3/ul (0.8-2.9); LYMPHOCYTES % 28.9 % (15.0-51.0); MEAN CORPUSCULAR HEMOGLOBIN 31.4 pg (29.0-33.0); MEAN CORPUSCULAR HGB CONC 32.9 g/dl (32.0-37.0); MEAN CORPUSCULAR VOLUME 95.5 fl (82.0-101.0); MEAN PLATELET VOLUME 9.6 fl (7.4-10.4); MONOCYTE # 0.7 10^3/ul (0.3-0.9); MONOCYTES % 6.5 % (0.0-11.0); NEUTROPHIL # 6.2 10^3/ul (1.6-7.5); NEUTROPHILS % 58.7 % (39.0-77.0); PLATELET COUNT 386 10^3/UL (140-415); RED BLOOD COUNT 4.62 10^6/ul (4.20-5.40); RED CELL DISTRIBUTION WIDTH 12.3 % (11.5-14.5)
[2018-09-29 17:57] LABS: WHITE BLOOD COUNT 10.6 10^3/ul (4.8-10.8)
[2018-09-29 18:24] LABS: ALANINE AMINOTRANSFERASE 21 IU/L (13-69); ALBUMIN 3.8 g/dl (3.3-4.9); ALKALINE PHOSPHATASE 149 IU/L (42-121); ANION GAP 11 (5-13); ASPARTATE AMINO TRANSFERASE 20 IU/L (15-46); BILIRUBIN,INDIRECT 0.3 mg/dl (0-1.1); BILIRUBIN,TOTAL 0.3 mg/dl (0.2-1.3); BLOOD UREA NITROGEN 15 mg/dl (7-20); CALCIUM 9.4 mg/dl (8.4-10.2); CARBON DIOXIDE 22 mmol/L (21-31); CHLORIDE 111 mmol/L (97-110); CREATININE 0.82 mg/dl (0.44-1.00); Estimated GFR > 60 mL/min (>60); GLUCOSE 92 mg/dl (70-220); POTASSIUM 4.2 mmol/L (3.5-5.1); SODIUM 144 mmol/L (135-144); TOTAL PROTEIN 7.6 g/dl (6.1-8.1)
[2018-09-29 19:08] LABS: ADD UMIC YES; UR ASCORBIC ACID NEGATIVE (NEGATIVE); UR BILIRUBIN (Dip) NEGATIVE (NEGATIVE); UR BLOOD (Dip) 1+ mg/dL (NEGATIVE); UR CLARITY CLEAR (CLEAR); UR COLOR YELLOW (YELLOW); UR GLUCOSE (Dip) NEGATIVE (NEGATIVE); UR KETONES (Dip) NEGATIVE (NEGATIVE); UR LEUKOCYTE ESTERASE (Dip) NEGATIVE Leu/ul (NEGATIVE); UR NITRITE (Dip) NEGATIVE (NEGATIVE); UR RBC 1 /HPF (0-5); UR TOTAL PROTEIN (Dip) NEGATIVE (NEGATIVE); UR UROBILINOGEN (Dip) NEGATIVE (NEGATIVE); UR WBC 1 /HPF (0-5)
[2018-09-29] MEDS: IBUPROFEN 600 MG TAB PO (19:39)
[2018-09-29] MEDS ORDERED: ACETAMINOPHEN 325 MG TAB PO (20:00)
[2018-09-29] MEDS ORDERED: ONDANSETRON 4 MG INJ IV (20:00)
== END 2018-09-29 21:51 | disposition home or self-care (01) ==
LOC: FTE 15:31 → E/R 21:51
DX: R51 Headache (principal); R40.2142 Coma scale, eyes open, spontaneous, at arrival to emergency department; R40.2362 Coma scale, best motor response, obeys commands, at arrival to emergency department; R40.2252 Coma scale, best verbal response, oriented, at arrival to emergency department
CPT/HCPCS: 76705; 80053; 81001; 85025; 96360; 96361; 99285-25

== ENCOUNTER → 2018-11-08 | Outpatient (CLI) | payer BC ==
[2018-11-08 10:36] LABS: ADD MAN DIFF? NO; BASOPHILS % 0.5 % (0.0-2.0); EOSINOPHILS # 0.1 10^3/ul (0.0-0.5); HEMATOCRIT 35.8 % (37.0-47.0); HEMOGLOBIN 11.8 g/dl (12.0-16.0); LYMPHOCYTES # 1.9 10^3/ul (0.8-2.9); LYMPHOCYTES % 30.2 % (15.0-51.0); MEAN CORPUSCULAR HEMOGLOBIN 30.9 pg (29.0-33.0); MEAN CORPUSCULAR VOLUME 93.7 fl (82.0-101.0); MEAN PLATELET VOLUME 9.5 fl (7.4-10.4); MONOCYTE # 0.4 10^3/ul (0.3-0.9); NEUTROPHIL # 3.9 10^3/ul (1.6-7.5); NEUTROPHILS % 60.8 % (39.0-77.0); PLATELET COUNT 275 10^3/UL (140-415); RED BLOOD COUNT 3.82 10^6/ul (4.20-5.40); RED CELL DISTRIBUTION WIDTH 11.8 % (11.5-14.5)
[2018-11-08 10:36] LABS: WHITE BLOOD COUNT 6.4 10^3/ul (4.8-10.8)
[2018-11-08 10:53] LABS: ADD UMIC YES; UR ASCORBIC ACID NEGATIVE (NEGATIVE); UR BILIRUBIN (Dip) NEGATIVE (NEGATIVE); UR BLOOD (Dip) 3+ mg/dL (NEGATIVE); UR CLARITY SLIGHTLY CLOUDY (CLEAR); UR COLOR YELLOW (YELLOW); UR GLUCOSE (Dip) NEGATIVE (NEGATIVE); UR KETONES (Dip) NEGATIVE (NEGATIVE); UR LEUKOCYTE ESTERASE (Dip) TRACE Leu/ul (NEGATIVE); UR MUCUS FEW /HPF (NONE SEEN); UR NITRITE (Dip) NEGATIVE (NEGATIVE); UR RBC > 182 /HPF (0-5); UR SPECIFIC GRAVITY (Dip) 1.016 (1.003-1.030); UR TOTAL PROTEIN (Dip) NEGATIVE (NEGATIVE); UR UROBILINOGEN (Dip) NEGATIVE (NEGATIVE); UR WBC 5 /HPF (0-5)
[2018-11-08 11:16] LABS: ALANINE AMINOTRANSFERASE 47 IU/L (13-69); ALBUMIN 3.8 g/dl (3.3-4.9); ALKALINE PHOSPHATASE 87 IU/L (42-121); ANION GAP 8 (5-13); ASPARTATE AMINO TRANSFERASE 34 IU/L (15-46); BILIRUBIN,INDIRECT 0.6 mg/dl (0-1.1); BILIRUBIN,TOTAL 0.6 mg/dl (0.2-1.3); BLOOD UREA NITROGEN 10 mg/dl (7-20); CALCIUM 9.5 mg/dl (8.4-10.2); CARBON DIOXIDE 25 mmol/L (21-31); CHLORIDE 106 mmol/L (97-110); CREATININE 0.82 mg/dl (0.44-1.00); Estimated GFR > 60 mL/min (>60); GLUCOSE 77 mg/dl (70-220); POTASSIUM 3.7 mmol/L (3.5-5.1); SODIUM 139 mmol/L (135-144); TOTAL PROTEIN 6.9 g/dl (6.1-8.1)
[2018-11-08 11:17] LABS: ALBUMIN/GLOBULIN RATIO 1.22; CHOLESTEROL 145 mg/dl (100-200); HDL CHOLESTEROL 48 mg/dl (33-83); LDL CHOLESTEROL,CALCULATED 88 mg/dl; TRIGLYCERIDES 46 mg/dl (0-149)
[2018-11-08 11:32] LABS: T4 (THYROXINE) 8.5 ug/dl (5.5-11.0)
== END | disposition home or self-care (01) ==
LOC: LAB 10:12
DX: D64.9 Anemia, unspecified (principal); R31.9 Hematuria, unspecified
CPT/HCPCS: 80053; 80061; 81001; 84436; 84443; 85025